=== PATIENT | male | born 1965 | race Caucasian/White ===

== ENCOUNTER 2019-09-11 12:27 | Outpatient (CLI) | payer OTHER, SELFPAY ==
--- NOTE | ~2019-09-11 | XR_ITS ---
XR chest 2V DATE: 09/11/2019 12:57 INDICATION: Decreased breath sounds. Status post CABG. TECHNIQUE: PA and lateral views COMPARISON: 02/13/2008 two-view chest FINDINGS: Status post sternotomy. There is left basilar lower lobe atelectasis and/or consolidation. The lungs are otherwise clear. Normal heart size. No hilar or mediastinal enlargement. IMPRESSION: Status post sternotomy/CABG Left basilar lower lobe atelectasis and/or consolidation Reviewed, dictated and finalized at location B. [employer]
== END 2019-09-11 12:28 | disposition home or self-care (01) ==
PROVIDERS: PCP Internal Medicine; Visit Provider Internal Medicine
DX: Z95.1 Presence of aortocoronary bypass graft (principal); R06.9 Unspecified abnormalities of breathing
CPT/HCPCS: 71046

== ENCOUNTER 2024-07-15 11:10 | Outpatient (CLI) | payer OTHER, MEDICAID, SELFPAY ==
[2024-07-15 12:00] LABS: Basophils Absolute Auto 0.03 K/mm3 (0.00-0.10); Basophils Percent Auto 0.4 % (0.0-1.0); Eosinophils Absolute Auto 0.09 K/mm3 (0.02-0.50); Eosinophils Percent Auto 1.2 % (1.0-6.0); Hematocrit 43.5 % (40.0-54.0); Hemoglobin 15.2 g/dL (14.0-18.0); Immature Granulocyte Absolute 0.03 K/mm3 (0.00-0.00); Immature Granulocyte Percent A 0.4 % (0.0-0.0); Lymphocytes Absolute Auto 1.31 K/mm3 (1.10-4.50); Lymphocytes Percent Auto 16.9 % (18.0-42.0); Mean Corpuscular HGB Conc 34.9 g/dL (32-36); Mean Corpuscular Hemoglobin 29.9 pg (27.0-31.0); Mean Corpuscular Volume 85.5 fL (78.0-102.0); Mean Platelet Volume 10.6 fl (8.7-11.0); Monocytes Absolute Auto 0.44 K/mm3 (0.10-0.90); Monocytes Percent Auto 5.7 % (2.0-11.0); Neutrophils Absolute Auto 5.87 K/mm3 (1.70-7.20); Neutrophils Percent Auto 75.4 % (50.0-70.0); Platelet Count Result 261 K/mm3 (150-420); Red Blood Count 5.09 M/mm3 (4.70-6.10); White Blood Count 7.8 K/mm3 (4.8-10.8)
[2024-07-15 12:09] LABS: Hemoglobin A1C 6.3 % (<5.7)
[2024-07-15 12:25] LABS: Alanine Aminotransferase 36 U/L (16-63); Alkaline Phosphatase 46 U/L (46-116); Anion Gap 12 mmol/L (4-12); Aspartate Amino Transferase 20 U/L (15-37); Bilirubin,Total 0.9 mg/dL (0.00-1.00); Blood Urea Nitrogen 21 mg/dL (7-18); Calcium 9.3 mg/dL (8.5-10.1); Carbon Dioxide 27 mmol/L (21-32); Chloride 102 mmol/L (98-108); Cholesterol 149 mg/dL (0-200); Creatine Kinase 401 U/L (39-308); Estimated Glomerular Filt Rate > 60; Glucose 129 mg/dL (70-99); HDL Direct 48 mg/dL (40-60); LDL Cholesterol Calculated 80 mg/dL (<130); Osmolality Calculated 297 mOsm/kg (285-295); Potassium 4.4 mmol/L (3.5-5.1); Sodium 141 mmol/L (136-145); Total Protein 7.3 g/dL (6.4-8.2); Triglycerides 103 mg/dL (0-150)
== END 2024-07-15 11:11 | disposition home or self-care (01) ==
PROVIDERS: PCP Internal Medicine; Visit Provider Internal Medicine
DX: Z00.00 Encounter for general adult medical examination without abnormal findings (principal); E78.5 Hyperlipidemia, unspecified; E11.8 Type 2 diabetes mellitus with unspecified complications
CPT/HCPCS: 36415; 80053; 80061; 82550; 83036; 85025